=== PATIENT | male | born 1930 | race Caucasian/White ===

== ENCOUNTER 2018-04-04 16:06 | Inpatient (IN) | payer MEDICARE ==
[~2018-04-04] VITALS: Ht 177.8 cm; Wt 99.9 kg
[2018-04-04 17:08] LABS: BASOPHILS % 0.2 % (0.0-1.0); HEMATOCRIT 32.2 % (38.2-49.6); HEMOGLOBIN 10.7 g/dL (14.0-18.0); LYMPHOCYTES # (AUTO) 0.4 (1.0-3.2); LYMPHOCYTES % 2.5 % (18.0-39.1); MEAN CORPUSCULAR HEMOGLOBIN 31.4 pg (28-32); MEAN CORPUSCULAR HGB CONC 33.2 g/dL (31-35); MEAN CORPUSCULAR VOLUME 94.4 fL (81-99); MONOCYTES # (AUTO) 0.6 (0.2-0.8); MONOCYTES % 3.3 % (4.4-11.3); NEUTROPHILS # (AUTO) 15.4 (2.1-6.9); NEUTROPHILS % 92.4 % (38.7-80.0); PLATELET COUNT 209 x10e3/uL (140-360); RED BLOOD COUNT 3.41 x10e6/uL (4.3-5.7); RED CELL DISTRIBUTION WIDTH 14.1 % (11.7-14.4)
[2018-04-04 17:22] LABS: INR 0.95; PROTHROMBIN TIME 13.5 seconds (11.9-14.5)
[2018-04-04 17:23] LABS: PARTIAL THROMBOPLASTIN TIME 29.3 seconds (23.8-35.5)
--- NOTE | 2018-04-04 17:26 | Diagnostic Imaging Report ---
EXAMINATION: Head CT HISTORY: Status post fall, left eye hematoma, hip fracture COMPARISON: None. TECHNIQUE: Multidetector axial images were obtained without contrast from the foramen magnum to the vertex . The images were reconstructed using brain and bone algorithms. Thin section brain images were reformatted into coronal and sagittal planes. Intravenous contrast: None. Image quality: Motion/streaking artifact limits the evaluation of the skull base and posterior cranial fossa. Dose modulation, iterative reconstruction, and/or weight based adjustment of the mA/kV was utilized to reduce the radiation dose to as low as reasonably achievable. FINDINGS: Parenchyma: 1. Minimal periventricular white matter hypodensities, most likely nonspecific chronic microvascular ischemic changes. 2. No mass or hemorrhage. No CT evidence of acute territorial vascular insult. Extra-axial spaces:No abnormal density. No extra-axial fluid collections Brain volume: Normal for age. Ventricles: No hydrocephalus or displacement. Arteries: No density suggestive of thrombus. Dural sinuses: No abnormal density. Extra-axial spaces: No abnormal density. Foramen magnum: No mass, Chiari malformation, or basilar invagination. Sella: No obvious mass. Paranasal/mastoid sinuses: Hypo pneumatization, sclerosis and opacification of the bilateral mastoid air cells and middle ears, likely related to chronic inflammatory process. Skull/Scalp: No lytic or blastic lesions. No fractures. Left periorbital soft tissue swelling/hematoma without underlying fractures. IMPRESSION: 1. Left periorbital soft tissue swelling/hematoma without underlying fractures. 2. No acute posttraumatic intracranial hemorrhage. 3. Mild chronic microvascular ischemic changes. 4. 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 Signed by: Dr. Suze Najera M.D. on 04/04/2018 5:23 PM
[2018-04-04 17:27] LABS: ALANINE AMINOTRANSFERASE 35 IU/L (0-55); ALBUMIN 2.3 g/dL (3.5-5.0); ALBUMIN/GLOBULIN RATIO 0.9 (0.8-2.0); ALKALINE PHOSPHATASE 96 IU/L (40-150); ANION GAP 17.1 mmol/L (8-16); BLOOD UREA NITROGEN 12 mg/dL (7-26); BUN/CREATININE RATIO 15 (6-25); CALCIUM 7.6 mg/dL (8.4-10.2); CARBON DIOXIDE 18 mmol/L (22-29); CHLORIDE 105 mmol/L (98-107); CREATINE KINASE 13 IU/L (30-200); CREATININE, SERUM 0.81 mg/dL (0.72-1.25); EST GLOMERULAR FILTRATION RATE > 60 ML/MIN (60-); GLUCOSE 219 mg/dL (74-118); POTASSIUM 4.1 mmol/L (3.5-5.1); SODIUM 136 mmol/L (136-145)
--- NOTE | 2018-04-04 18:03 | Diagnostic Imaging Report ---
Examination: Single AP view of the chest. COMPARISON: None. INDICATION: Hip fracture status post fall IMPRESSION: Exam limited by soft tissue attenuation 1. Lines and Tubes: None 2. Lungs are well-inflated. Atelectatic changes in the left base. No definite consolidation. 3. Cardiomediastinal silhouette is normal. Central pulmonary venous congestion. 4. No acute bony abnormalities. Degenerative changes in the thoracic spine Signed by: Dr. Reji Mace M.D. on 04/04/2018 6:00 PM
--- NOTE | 2018-04-04 18:06 | Diagnostic Imaging Report ---
EXAMINATION: Bilateral Hip Films CLINICAL HISTORY:Status post fall COMPARISON: None. DISCUSSION: Right: Mild osteopenia. No acute, displaced fractures or dislocations. No gross soft tissue abnormalities. No osteolytic or osteoblastic lesions. Mild degenerative changes in the right hip joint. Left: Mild osteopenia. Acute, mildly displaced likely intertrochanteric fracture of the left proximal femur. The femoral head remains aligned with the acetabulum. Mild degenerative changes in the hip joint. No gross soft tissue abnormalities. No osteolytic or osteoblastic lesions. IMPRESSION: 1. Acute, mildly displaced likely intertrochanteric fracture of the left proximal femur Signed by: Dr. Reji Mace M.D. on 04/04/2018 6:02 PM
[2018-04-04 18:10] LABS: CLARITY,URINE CLEAR (CLEAR); COLOR,URINE YELLOW (YELLOW)
[2018-04-04 18:11] LABS: BILIRUBIN,URINE NEGATIVE (NEGATIVE); KETONES,URINE TRACE (NEGATIVE); LEUKOCYTE ESTERASE ,URINE NEGATIVE (NEGATIVE); NITRITE,URINE NEGATIVE (NEGATIVE); PROTEIN,URINE DIPSTICK TRACE (NEGATIVE); URINE UROBILINOGEN 0.2 mg/dL (0.2 - 1)
[2018-04-04 18:18] LABS: BACTERIA,URINE FEW /HPF; EPITHELIAL CELLS,URINE FEW /LPF; MUCUS,URINE MODERATE (RARE)
[2018-04-04] MEDS ORDERED: TYLENOL325 MG PO (18:51)
[2018-04-04] MEDS ORDERED: MULTI-MINERALS PO (18:51)
[2018-04-04] MEDS ORDERED: FLOMAX0.4 MG PO (18:51)
[2018-04-04] MEDS ORDERED: VITAMIN B-121000 MCG PO (18:51)
[2018-04-04] MEDS ORDERED: METOPROLOL TART50 MG PO (18:51)
[2018-04-04] MEDS ORDERED: ASPIRIN81 MG PO (18:51)
[2018-04-04] MEDS ORDERED: PREDNISONE5 MG (18:51)
[2018-04-04] MEDS ORDERED: CYMBALTA30 MG (18:51)
[2018-04-04] MEDS ORDERED: PYRIDOXINE HCL50 MG PO (18:51)
[2018-04-04] MEDS ORDERED: AUGMENTIN 500-1 EACH PO (18:51)
[2018-04-04] MEDS ORDERED: LOSARTAN POTASS25 MG (18:51)
[2018-04-04] MEDS: SODIUM CHLORIDE 0.9% 1000ML 1,000 ML IV SCH (19:51)
[2018-04-04] MEDS: MORPHINE SULFATE 2 MG/ML SYR IV PRN (19:51)
[2018-04-04] MEDS: CEFTRIAXONE SOD 1 GM VIAL IV SCH (19:51)
[2018-04-04 20:15] VITALS: BP 141/70
[2018-04-04 20:30] VITALS: BP 166/75
[2018-04-04 21:00] VITALS: BP 166/75
[2018-04-05] VITALS (9 sets, daily range): BP systolic 90–151; BP diastolic 52–74
[2018-04-05 03:36] LABS: ANION GAP 12.4 mmol/L (8-16); BLOOD UREA NITROGEN 10 mg/dL (7-26); BUN/CREATININE RATIO 14 (6-25); CALCIUM 7.7 mg/dL (8.4-10.2); CARBON DIOXIDE 25 mmol/L (22-29); CHLORIDE 107 mmol/L (98-107); CREATINE KINASE 12 IU/L (30-200); CREATININE, SERUM 0.74 mg/dL (0.72-1.25); EST GLOMERULAR FILTRATION RATE > 60 ML/MIN (60-); GLUCOSE 122 mg/dL (74-118); POTASSIUM 3.4 mmol/L (3.5-5.1); SODIUM 141 mmol/L (136-145)
[2018-04-05 05:33] LABS: BASOPHILS % 0.1 % (0.0-1.0); EOSINOPHILS # (AUTO) 0.1 (0.0-0.4); EOSINOPHILS % 0.9 % (0.0-6.0); HEMATOCRIT 28.9 % (38.2-49.6); HEMOGLOBIN 9.6 g/dL (14.0-18.0); LYMPHOCYTES # (AUTO) 0.9 (1.0-3.2); LYMPHOCYTES % 6.7 % (18.0-39.1); MEAN CORPUSCULAR HEMOGLOBIN 31.5 pg (28-32); MEAN CORPUSCULAR HGB CONC 33.2 g/dL (31-35); MEAN CORPUSCULAR VOLUME 94.8 fL (81-99); MONOCYTES # (AUTO) 0.7 (0.2-0.8); MONOCYTES % 5.1 % (4.4-11.3); NEUTROPHILS # (AUTO) 12.1 (2.1-6.9); NEUTROPHILS % 85.7 % (38.7-80.0); PLATELET COUNT 182 x10e3/uL (140-360); RED BLOOD COUNT 3.05 x10e6/uL (4.3-5.7); RED CELL DISTRIBUTION WIDTH 13.9 % (11.7-14.4)
[2018-04-05] MEDS: MORPHINE SULFATE 2 MG/ML SYR IV PRN (05:34)
[2018-04-05] MEDS: ONDANSETRON HCL INJ 2 MG/ML VIAL IV PRN (05:34)
[2018-04-05] MEDS: SODIUM CHLORIDE 0.9% 1000ML 1,000 ML IV SCH (06:09)
[2018-04-05] MEDS: FAMOTIDINE 20 MG TAB PO SCH ×2 (08:30→17:18)
[2018-04-05] MEDS: LOSARTAN POTASSIUM 25 MG TAB PO SCH ×2 (09:00→17:00)
[2018-04-05] MEDS: METOPROLOL TARTRATE 50 MG TAB PO SCH ×2 (09:00→17:00)
[2018-04-05] MEDS ORDERED: POTASSIUM CHLORIDE 20 MEQ TAB CR PO NR (10:00)
--- NOTE | 2018-04-05 10:56 | Diagnostic Imaging Report ---
ADDENDUM #1 Addendum impression: Dose modulation, iterative reconstruction, and/or weight based adjustment of the mA/kV was utilized to reduce the radiation dose to as low as reasonably achievable. Signed by: Dr. Tee Palomo M.D. on 04/19/2018 11:12 AM ORIGINAL REPORT TECHNIQUE: Computed tomography imaging of the LEFT HIP was performed WITHOUT injected contrast. HISTORY: Pain COMPARISON: None available. FINDINGS: Nonsignificantly displaced complete fracture of the femoral neck with mild impaction. No additional fractures. Bone demineralization. No lytic or blastic lesion. Left hip joint effusion. Mild generalized atrophy of the musculature. IMPRESSION: Nonsignificantly displaced complete fracture of the femoral neck with mild impaction Signed by: Dr. Tee Palomo M.D. on 04/05/2018 10:52 AM
[2018-04-05] MEDS: DULOXETINE HCL 30 MG DELAYED RELEASE PO SCH (11:00)
[2018-04-05] MEDS: MORPHINE SULFATE INJ 4 MG/ML INJ IV PRN (11:13)
[2018-04-05 11:21] LABS: CREATINE KINASE MB 1.3 ng/mL (0-5.0)
[2018-04-05] MEDS: CEFTRIAXONE SOD 1 GM VIAL IV SCH (17:18)
[2018-04-05 19:27] LABS: CREATINE KINASE MB 1.1 ng/mL (0-5.0)
[2018-04-05] MEDS: ACETAMINOPHEN 325 MG/10 ML UDC PO PRN (21:23)
[2018-04-05] MEDS: TAMSULOSIN HCL 0.4 MG CAP PO SCH (21:23)
[2018-04-06] VITALS (8 sets, daily range): BP systolic 125–158; BP diastolic 57–72
[2018-04-06] MEDS: SODIUM CHLORIDE 0.9% 1000ML 1,000 ML IV SCH ×2 (00:28→11:20)
[2018-04-06] MEDS: MORPHINE SULFATE INJ 4 MG/ML INJ IV PRN ×2 (03:45→13:18)
[2018-04-06 04:42] LABS: BASOPHILS % 0.1 % (0.0-1.0); EOSINOPHILS # (AUTO) 0.2 (0.0-0.4); EOSINOPHILS % 1.4 % (0.0-6.0); HEMATOCRIT 29.6 % (38.2-49.6); HEMOGLOBIN 9.5 g/dL (14.0-18.0); LYMPHOCYTES # (AUTO) 0.8 (1.0-3.2); LYMPHOCYTES % 6.7 % (18.0-39.1); MEAN CORPUSCULAR HEMOGLOBIN 31.3 pg (28-32); MEAN CORPUSCULAR HGB CONC 32.1 g/dL (31-35); MEAN CORPUSCULAR VOLUME 97.4 fL (81-99); MONOCYTES # (AUTO) 0.7 (0.2-0.8); MONOCYTES % 6.1 % (4.4-11.3); NEUTROPHILS # (AUTO) 9.5 (2.1-6.9); NEUTROPHILS % 84.2 % (38.7-80.0); PLATELET COUNT 158 x10e3/uL (140-360); RED BLOOD COUNT 3.04 x10e6/uL (4.3-5.7); RED CELL DISTRIBUTION WIDTH 14.5 % (11.7-14.4)
[2018-04-06 05:15] LABS: % IRON SATURATION 12 % (15-50); ANION GAP 12.5 mmol/L (8-16); BLOOD UREA NITROGEN 13 mg/dL (7-26); BUN/CREATININE RATIO 16 (6-25); CALCIUM 7.4 mg/dL (8.4-10.2); CARBON DIOXIDE 23 mmol/L (22-29); CHLORIDE 110 mmol/L (98-107); CREATININE, SERUM 0.81 mg/dL (0.72-1.25); EST GLOMERULAR FILTRATION RATE > 60 ML/MIN (60-); GLUCOSE 117 mg/dL (74-118); IRON 16 ug/dL (65-175); MAGNESIUM 1.4 MG/DL (1.3-2.1); POTASSIUM 3.5 mmol/L (3.5-5.1); SODIUM 142 mmol/L (136-145); TOTAL IRON BINDING CAPACITY 130 ug/dL (261-478); TRANSFERRIN 93 mg/dL (174-364)
[2018-04-06 05:44] LABS: FERRITIN 633.65 ng/mL (21.81-274.66); THYROID STIMULATING HORMONE 2.732 uIU/mL (0.350-4.940)
[2018-04-06] MEDS: FAMOTIDINE 20 MG TAB PO SCH ×2 (07:30→16:30)
[2018-04-06] MEDS: DULOXETINE HCL 30 MG DELAYED RELEASE PO SCH (09:12)
[2018-04-06] MEDS: LOSARTAN POTASSIUM 25 MG TAB PO SCH ×2 (09:12→17:00)
[2018-04-06] MEDS: METOPROLOL TARTRATE 50 MG TAB PO SCH ×2 (09:13→17:00)
[2018-04-06] MEDS: ONDANSETRON HCL INJ 2 MG/ML VIAL IV PRN (13:17)
[2018-04-06] MEDS: CEFTRIAXONE SOD 1 GM VIAL IV SCH (19:03)
[2018-04-06] MEDS: TAMSULOSIN HCL 0.4 MG CAP PO SCH (20:36)
[2018-04-06] MEDS: ACETAMINOPHEN 325 MG/10 ML UDC PO PRN (21:06)
[2018-04-07] VITALS (7 sets, daily range): BP systolic 128–163; BP diastolic 60–79
[2018-04-07] MEDS: SODIUM CHLORIDE 0.9% 1000ML 1,000 ML IV SCH ×2 (05:46→22:12)
[2018-04-07] MEDS: FAMOTIDINE 20 MG TAB PO SCH ×2 (07:30→16:58)
[2018-04-07 08:12] LABS: BASOPHILS % 0.1 % (0.0-1.0); EOSINOPHILS # (AUTO) 0.1 (0.0-0.4); EOSINOPHILS % 1.1 % (0.0-6.0); HEMATOCRIT 28.1 % (38.2-49.6); LYMPHOCYTES # (AUTO) 0.7 (1.0-3.2); LYMPHOCYTES % 7.4 % (18.0-39.1); MEAN CORPUSCULAR HEMOGLOBIN 31.1 pg (28-32); MEAN CORPUSCULAR VOLUME 97.2 fL (81-99); MONOCYTES # (AUTO) 0.7 (0.2-0.8); MONOCYTES % 7.2 % (4.4-11.3); NEUTROPHILS % 82.9 % (38.7-80.0); PLATELET COUNT 141 x10e3/uL (140-360); RED BLOOD COUNT 2.89 x10e6/uL (4.3-5.7); RED CELL DISTRIBUTION WIDTH 14.2 % (11.7-14.4)
[2018-04-07 08:34] LABS: ANION GAP 9.8 mmol/L (8-16); BLOOD UREA NITROGEN 12 mg/dL (7-26); BUN/CREATININE RATIO 17 (6-25); CALCIUM 7.7 mg/dL (8.4-10.2); CARBON DIOXIDE 26 mmol/L (22-29); CHLORIDE 107 mmol/L (98-107); CREATININE, SERUM 0.69 mg/dL (0.72-1.25); EST GLOMERULAR FILTRATION RATE > 60 ML/MIN (60-); GLUCOSE 135 mg/dL (74-118); MAGNESIUM 1.4 MG/DL (1.3-2.1); POTASSIUM 3.8 mmol/L (3.5-5.1); SODIUM 139 mmol/L (136-145)
[2018-04-07] MEDS ORDERED: DOCUSATE SODIUM 100 MG CAP PO SCH (09:00)
[2018-04-07] MEDS: LOSARTAN POTASSIUM 25 MG TAB PO SCH ×2 (09:34→16:58)
[2018-04-07] MEDS: DULOXETINE HCL 30 MG DELAYED RELEASE PO SCH (09:34)
[2018-04-07] MEDS: DOCUSATE SODIUM LIQD 100 MG/10 ML UDC NG SCH ×2 (09:34→16:58)
[2018-04-07] MEDS: POLYETHYLENE GLYCOL 3350 17 GM PACK PO SCH ×2 (09:34→16:59)
[2018-04-07] MEDS: METOPROLOL TARTRATE 50 MG TAB PO SCH ×2 (09:34→16:59)
[2018-04-07] MEDS: ONDANSETRON HCL INJ 2 MG/ML VIAL IV PRN (12:49)
[2018-04-07] MEDS: MORPHINE SULFATE INJ 4 MG/ML INJ IV PRN ×2 (12:49→21:20)
[2018-04-07] MEDS: CEFTRIAXONE SOD 1 GM VIAL IV SCH (18:28)
[2018-04-07] MEDS: TAMSULOSIN HCL 0.4 MG CAP PO SCH (21:10)
[2018-04-08] VITALS (9 sets, daily range): BP systolic 117–175; BP diastolic 56–82
[2018-04-08] MEDS: MORPHINE SULFATE INJ 4 MG/ML INJ IV PRN ×3 (06:00→20:18)
[2018-04-08] MEDS: DOCUSATE SODIUM LIQD 100 MG/10 ML UDC NG SCH ×2 (08:32→16:36)
[2018-04-08] MEDS: FAMOTIDINE 20 MG TAB PO SCH ×2 (08:32→16:36)
[2018-04-08] MEDS: DULOXETINE HCL 30 MG DELAYED RELEASE PO SCH (08:33)
[2018-04-08] MEDS: LOSARTAN POTASSIUM 25 MG TAB PO SCH ×2 (08:33→16:36)
[2018-04-08] MEDS: METOPROLOL TARTRATE 50 MG TAB PO SCH ×2 (08:33→16:36)
[2018-04-08] MEDS: POLYETHYLENE GLYCOL 3350 17 GM PACK PO SCH ×2 (09:06→16:36)
[2018-04-08] MEDS: HYDRALAZINE HCL 20 MG/ML VIAL IV PRN ×2 (09:07→20:18)
--- NOTE | 2018-04-08 14:59 | Diagnostic Imaging Report ---
EXAM: Modified barium swallow with Speech Pathologist INDICATION: \S\aspiration \[id number] \S\1100 COMPARISON: None available. FINDINGS: This examination was conducted in conjunction with speech pathologist. Laryngeal penetration was noted with nectar thick liquid, as well as thin liquid. Nely silent aspiration with thin liquids was also noted. IMPRESSION: Laryngeal penetration and nely aspiration as above. Please see speech pathology report for detailed description and recommendations. Signed by: Dr. Saji Erazo M.D. on 04/08/2018 2:56 PM
[2018-04-08] MEDS: SODIUM CHLORIDE 0.9% 1000ML 1,000 ML IV SCH (15:09)
[2018-04-08] MEDS: CEFTRIAXONE SOD 1 GM VIAL IV SCH (18:04)
[2018-04-08] MEDS: TAMSULOSIN HCL 0.4 MG CAP PO SCH (20:17)
[2018-04-09] VITALS (8 sets, daily range): BP systolic 110–177; BP diastolic 7–70
[2018-04-09] MEDS: HYDRALAZINE HCL 20 MG/ML VIAL IV PRN (05:32)
--- NOTE | 2018-04-09 07:10 | Progress Note ---
DATE: April 09, 2018 OVERNIGHT: Patient was transferred to my service due to insurance issues. REVIEW OF SYSTEMS: Unobtainable. PHYSICAL EXAM VITAL SIGNS: Reviewed. GENERAL: Tired-appearing man resting in bed. HEENT: Atraumatic. CARDIOVASCULAR: Normal S1 and S2. LUNGS: Reduced breath sounds throughout. ABDOMEN: Soft, nontender, nondistended. EXTREMITIES: No edema. Left leg in traction. SKIN: Dry. PSYCHIATRIC: Flat affect. NEUROLOGIC: Not interactive. Eyes open. LABS: Reviewed. MEDICATIONS: Reviewed. ASSESSMENT: An 87-year-old man. 1. Fall. 2. Left hip fracture. 3. Uncontrolled hypertension. 4. BPH. 5. Moderate iron-deficiency anemia. 6. Dysphagia. PLAN 1. Patient is for hospice care. 2. We will treat him with iron sulfate. 3. Will control blood pressure by titrating his beta-blockers up. 4. Will continue his other medication. 5. Await hospice care services. Job#: [id number] CQ
[2018-04-09] MEDS: FAMOTIDINE 20 MG TAB PO SCH ×2 (07:44→16:26)
[2018-04-09] MEDS: METOPROLOL TARTRATE 50 MG TAB PO SCH ×2 (07:45→16:24)
[2018-04-09] MEDS: DULOXETINE HCL 30 MG DELAYED RELEASE PO SCH (07:45)
[2018-04-09] MEDS: POLYETHYLENE GLYCOL 3350 17 GM PACK PO SCH ×2 (07:45→16:26)
[2018-04-09] MEDS: DOCUSATE SODIUM LIQD 100 MG/10 ML UDC NG SCH ×2 (07:45→16:22)
[2018-04-09] MEDS: LOSARTAN POTASSIUM 25 MG TAB PO SCH ×3 (07:46→16:22)
[2018-04-09] MEDS: SODIUM CHLORIDE 0.9% 1000ML 1,000 ML IV SCH (10:49)
[2018-04-09] MEDS: CEFTRIAXONE SOD 1 GM VIAL IV SCH (18:16)
[2018-04-09] MEDS: TAMSULOSIN HCL 0.4 MG CAP PO SCH (21:00)
[2018-04-10] VITALS (8 sets, daily range): BP systolic 112–148; BP diastolic 55–65
[2018-04-10] MEDS: MORPHINE SULFATE INJ 4 MG/ML INJ IV PRN (06:33)
[2018-04-10] MEDS: FAMOTIDINE 20 MG TAB PO SCH ×2 (08:30→17:30)
[2018-04-10] MEDS: DOCUSATE SODIUM LIQD 100 MG/10 ML UDC NG SCH ×2 (08:30→21:33)
[2018-04-10] MEDS: LOSARTAN POTASSIUM 25 MG TAB PO SCH ×2 (08:30→21:33)
[2018-04-10] MEDS: POLYETHYLENE GLYCOL 3350 17 GM PACK PO SCH ×2 (08:30→21:33)
[2018-04-10] MEDS: DULOXETINE HCL 30 MG DELAYED RELEASE PO SCH (08:30)
[2018-04-10] MEDS: METOPROLOL TARTRATE 50 MG TAB PO SCH ×2 (08:30→21:33)
[2018-04-10] MEDS ORDERED: NEOMYCIN/POLYMYX/BACITR OINT 0.9 GM PKT ONE (12:07)
[2018-04-10] MEDS ORDERED: NEOMYCIN/POLYMYX/BACITR OINT 0.9 GM PKT TOP PRN (12:45)
[2018-04-10] MEDS: CEFTRIAXONE SOD 1 GM VIAL IV SCH (18:17)
[2018-04-10] MEDS: TAMSULOSIN HCL 0.4 MG CAP PO SCH (21:33)
--- NOTE | 2018-04-10 22:25 | Progress Note ---
DATE: April 10, 2018 TIME: 6:15 a.m. OVERNIGHT: No change. REVIEW OF SYSTEMS: Unobtainable. PHYSICAL EXAMINATION VITAL SIGNS: Reviewed. GENERAL: A tired-appearing man resting in bed. HEENT: Anicteric. CARDIOVASCULAR: Normal S1 and S2. LUNGS: Reduced breath sounds throughout. ABDOMEN: Soft and nondistended. Mild tenderness in the abdomen. EXTREMITIES: No edema. Left leg rotated. SKIN: Dry. PSYCHIATRIC: Flat affect. NEUROLOGIC: Confused. Minimal interaction. LABS: Reviewed. MEDICATIONS: Reviewed. ASSESSMENT: An 87-year-old man with: 1. Fall. 2. Left hip fracture. 3. Uncontrolled hypertension. 4. BPH. 5. Moderate iron deficiency anemia. 6. Dysphagia. 7. Acute metabolic encephalopathy. PLAN 1. Continue Hospice care. 2. Continue supportive care. 3. Keep the patient comfortable. 4. No further lab testing is needed. 5. Discontinue IV fluids to prevent the patient from becoming fluid overloaded. Job#: [id number] ANGELA
[2018-04-11] VITALS: BP 148/62
[2018-04-11] MEDS: MORPHINE SULFATE INJ 4 MG/ML INJ IV PRN ×2 (00:05→04:30)
[2018-04-11] MEDS: ONDANSETRON HCL INJ 2 MG/ML VIAL IV PRN (00:05)
[2018-04-11 04:00] VITALS: BP 136/56
[2018-04-11 08:00] VITALS: BP 123/60
[2018-04-11 08:22] VITALS: BP 123/60
[2018-04-11] MEDS: FAMOTIDINE 20 MG TAB PO SCH (10:38)
[2018-04-11] MEDS: DOCUSATE SODIUM LIQD 100 MG/10 ML UDC NG SCH (10:38)
[2018-04-11] MEDS: LOSARTAN POTASSIUM 25 MG TAB PO SCH (10:38)
[2018-04-11] MEDS: DULOXETINE HCL 30 MG DELAYED RELEASE PO SCH (10:38)
[2018-04-11] MEDS: METOPROLOL TARTRATE 50 MG TAB PO SCH (10:39)
[2018-04-11] MEDS: POLYETHYLENE GLYCOL 3350 17 GM PACK PO SCH (10:39)
[2018-04-11 12:43] VITALS: BP 76/37
--- NOTE | 2018-04-15 10:10 | Discharge Summary ---
PRINCIPAL DIAGNOSES 1. Fall. 2. Left hip fracture with without repair. 3. Uncontrolled hypertension. 4. BPH. 5. Moderate iron deficiency anemia. 6. Dysphagia. 7. Acute metabolic encephalopathy. SECONDARY DIAGNOSIS: BPH. CHIEF COMPLAINT: Fall. HISTORY OF PRESENT ILLNESS: This is an 87-year-old male with a fall. Please refer to the H and P for further details. HOSPITAL COURSE: The patient had a fall with a left hip fracture. No surgical management. He was placed on hospice care. He had moderate iron deficiency anemia and dysphagia. He also had acute metabolic encephalopathy. Hospice assumed care of the patient. The patient was transitioned to hospice care for further management. DISCHARGE MEDICATIONS: Per electronic medical record. FOLLOWUP: With hospice care tomorrow. SISSY RIVERA MD Job#: [id number]
== END 2018-04-11 14:50 | disposition hospice, inpatient (51) | DRG 951 ==
LOC: ER 16:06 → ERHOLD 19:10 → MED/SURG 20:14
PROVIDERS: ADMIT Internal Medicine; ATTEND Internal Medicine
DX: Z51.5 Encounter for palliative care (principal); S72.142A Displaced intertrochanteric fracture of left femur, initial encounter for closed fracture; G93.41 Metabolic encephalopathy; W18.30XA Fall on same level, unspecified, initial encounter; Y92.230 Patient room in hospital as the place of occurrence of the external cause; I10 Essential (primary) hypertension; N40.0 Benign prostatic hyperplasia without lower urinary tract symptoms; E87.6 Hypokalemia; D50.9 Iron deficiency anemia, unspecified; R13.10 Dysphagia, unspecified; Z66 Do not resuscitate
CPT/HCPCS: 36415; 70450; 71045; 73522; 74230; 80048; 80053; 81001; 82550; 82553; 82607; 82728; 82746; 83036; 83540; 83735; 84443; 84466; 84484; 85025; 85610; 85730; 87040; 87086; 93005; 93306; 96361; 99284; J0360; J0696; J2270; J2405; J7030